=== PATIENT | male | born 1985 | race Caucasian/White ===

== ENCOUNTER 2023-10-26 22:20 | Observation (INO) ==
[2023-10-26] MEDS ORDERED: SODIUM CHLORIDE 0.9% 1,000 ML IV ONE ×2 (23:13→23:20)
[2023-10-26] MEDS ORDERED: ONDANSETRON INJ 2 MG/ML 2 ML VIAL IV STA (23:14)
[2023-10-26] MEDS ORDERED: LORazepam 1 MG/1 ML SYR ED Inj Use IV STA (23:14)
[2023-10-26] MEDS ORDERED: GLUCAGON FOR INJ 1 MG VIAL SQ STA (23:15)
--- NOTE | 2023-10-26 23:20 | Emergency Department Note ---
History of Present Illness General Chief complaint: Food Bolus Stated complaint: FOOD BOLUS Time Seen by Provider: 10/26/23 23:07 Source: patient, family ( was at the bedside), RN notes reviewed and old records reviewed (Old records were attempted to be reviewed but there were no old records in the system) Mode of arrival: ambulatory Limitations: no limitations History of Present Illness Maximum Pain Intensity: 5 This patient is 38-year-old male who comes in after having difficulty swallowing. He feels like something stuck in his epigastric area. He has had this before but never been scoped he was eating some deer tenderloin's as well as other food today around 5:00 felt to get stuck since then he has had trouble drinking water all the saliva he is thrown up a couple times. No fever. No trauma or injury. His father did of esophageal cancer. Denies any allergies. His is at the bedside and driving. Allergies Allergy/AdvReac Type Severity Reaction Status Date / Time No Known Drug Allergies Allergy Verified 10/27/23 01:01 Past Med/Surg History Medical History Encounter for pre-operative examination Food impaction of esophagus Social History Smoking Status: Current every day smoker Tobacco Type: E-cigarettes / Vaping Feels Safe at Home: Yes Immunizations: Past medical historyhe has had ongoing issues with swallowing but never been evaluated Family history esophageal cancer Review of Systems A total of 10 systems reviewed and were otherwise negative Physical Exam Vital Signs Vital Signs - 24 hr 10/26/23 22:26 Temperature 36.5 C Temperature Source Temporal Artery Scan Pulse Rate 95 H Respiratory Rate 16 Respiratory Effort / Characteristics Non-Labored Spontaneous Respiratory Depth Normal Blood Pressure 139/89 Blood Pressure Mean 105 Blood Pressure Position Sitting Pulse Oximetry 94 Oxygen Delivery Method Room Air Sepsis Recent Fever Within 48 Hours No Sepsis New/Unexplained Change in Mental Status N/A Sepsis Action Taken by Nursing No Action Required General: Well developed well nourished young male who is spitting frequently his saliva but in no acute distress, breathing comfortably on room air. Normal speech HEENT: Normal cephalic atraumatic. Pupils are equal round and reactive to light. Extraocular movements are intact. Oropharynx is pink with moist mucous membranes. No swelling of the mouth lips or tongue. Neck: Supple with a midline trachea. No meningeal signs or stiffness, no JVD or bruits. No Stridor. Chest: Clear to auscultation bilaterally. No wheezes or rhonchi. No increased work of breathing. Heart: Regular rate and rhythm without murmurs or gallops. Abdomen: Soft nontender, nondistended without rebound guarding or rigidity. Extremities: No cyanosis clubbing or edema. No calf tenderness or assymetry Spine/Back. Non tender to palpation. No CVA tenderness Skin: Good turgor without rashes. Neurologic exam: Cranial nerves two through 12 are intact. Motor and sensation are intact and symmetrical throughout. Course Administered Medications Discontinued Medications Glucagon (Glucagon For Inj 1 Mg Vial) 1 mg SQ NOW STA Stop: 10/26/23 23:16 Last Admin: 10/26/23 23:26 Dose: 1 mg Documented By: MAIDA Sodium Chloride (Nss) 1,000 mls @ 999 mls/hr IV .Q1H1M ONE Stop: 10/27/23 00:13 Last Admin: 10/26/23 23:25 Dose: 999 mls/hr Documented By: MAIDA Sodium Chloride (Nss) 1,000 mls @ 999 mls/hr IV .Q1H1M ONE Stop: 10/27/23 00:20 Last Admin: 10/26/23 23:26 Dose: Not Given Documented By: MAIDA Lorazepam (Lorazepam 1 Mg/1 Ml Syr Ed Inj Use) 1 mg IV ONE STA Stop: 10/26/23 23:15 Last Admin: 10/26/23 23:25 Dose: 1 mg Documented By: MAIDA Ondansetron HCl (Ondansetron Inj 2 Mg/Ml 2 Ml Vial) 4 mg IV NOW STA Stop: 10/26/23 23:15 Last Admin: 10/26/23 23:25 Dose: 4 mg Documented By: MAIDA Medical Decision Making Differential Diagnosis Fluid bolus, dehydration, vomiting, infection, GERD Medical Records Attestation: I reviewed the patient's medical records. Home Medications Current Medication List: was personally reviewed by me Laboratory Data Attestation: I reviewed the patient's lab results. 10/26/23 23:32 10/26/23 23:32 Lab Results 10/26/23 Range/Units 23:32 WBC 8.27 (4.8-10.8) K/ul RBC 4.95 (4.70-6.10) M/uL Hgb 15.6 (14.0-18.0) g/dl Hct 44.2 (42.0-52.0) % MCV 89.3 (80.0-100.0) fL MCH 31.5 (25.0-34.0) pg MCHC 35.3 (32.0-36.0) g/dL RDW Std Deviation 39.7 (36.4-46.3) fL RDW Coeff of Demetris 12.2 (11.5-14.5) % Plt Count 328 (130-400) K/uL MPV 9.3 L (9.4-12.4) fL Immature Gran % (Auto) 0.4 % Neut % (Auto) 60.4 % Lymph % (Auto) 30.0 % [place] % (Auto) 6.8 % Eos % (Auto) 1.7 % Baso % (Auto) 0.7 % Neut # (Auto) 5.00 (1.40-6.50) K/uL Lymph # (Auto) 2.48 (1.20-3.40) K/uL [place] # (Auto) 0.56 (0.11-0.59) K/uL Eos # (Auto) 0.14 (0.00-0.50) K/uL Baso # (Auto) 0.06 (0.00-0.20) K/uL Immature Gran # (Auto) 0.03 (0.01-0.20) K/uL Sodium 142 (136-145) mmol/L Potassium 4.3 (3.5-5.1) mmol/L Chloride 105 (98-107) mmol/L Carbon Dioxide 32 (21-32) mmol/L Anion Gap 5 (3-11) BUN 12 (6-23) mg/dl Creatinine 0.90 (0.6-1.4) mg/dl Est Cr Clr Drug Dosing 140.4 ml/min Est GFR ( Amer) 125.1 ml/min Est GFR (Non-Af Amer) 108.0 ml/min BUN/Creatinine Ratio 13.3 (10-20) Glucose 98 (70-99(Fasting)) mg/dl Calcium 9.8 (8.6-10.3) mg/dl Total Bilirubin 0.3 (0.2-1.0) mg/dl AST 19 (13-39) U/L ALT 25 (7-52) U/L Alkaline Phosphatase 46 (34-104) U/L Total Protein 7.6 (6.0-8.3) gm/dl Albumin 4.9 (3.4-5.0) gm/dl Globulin 2.7 (2.5-4.0) gm/dl Albumin/Globulin Ratio 1.8 (0.9-2) Lipase 9 L (11-82) U/L Imaging Data Attestation: I personally reviewed and interpreted this imaging study as follows: My Impression: Chest x-rayno acute infiltrate, failure, pneumothorax seen. No free air. MDM Narrative This patient comes in as described above. He was seen in room C1. He is here for treatment and evaluation of difficulty swallowing clinically he appears to have a food bolus he is unable to swallow saliva I had him try drink water and he said he could not keep it down and started spitting back up. IV X established I did order blood work and an x-ray 1 L normal saline bolus I gave him Ativan 1 mg IV and Zofran 4 mg IV as well as glucagon 1 mg subcutaneous to attempt to treat the food bolus. Despite these efforts the patient did not receive any relief and when I went back and checked on him he was holding emesis bag that had a lot of clear liquid in it that he had thrown back up. He is spitting his saliva out. He will need to be scoped by GI. I did call and discussed the case in consultation with Dr. Simpson who is on-call for GI. He will call the team and they will plan on scoping the patient for his food bolus. Impression & Plan Food impaction of esophagus, Difficulty in swallowing, Epigastric abdominal pain, Vomiting Discharge Plan Visit Data Chief Complaint: Food Bolus Stated Complaint: FOOD BOLUS ED Provider: Oj Camp Discharge Problem: Food impaction of esophagus, Difficulty in swallowing, Epigastric abdominal pain, Vomiting Patient Disposition: Admitted As Inpatient Discharge Instructions Interventions: ED Discharge Assessment Last Done: 10/27/23 00:46 Discharge Problem: Difficulty in swallowing Qualifiers: Dysphagia type: unspecified Qualified Code(s): R13.10 - Dysphagia, unspecified Vomiting Qualifiers: Vomiting type: unspecified Nausea presence: with nausea Qualified Code(s): R 11.2 - Nausea with vomiting, unspecified
[2023-10-27 00:06] LABS: Albumin Globulin Ratio 1.8 (0.9-2); Albumin Level 4.9 gm/dl (3.4-5.0); BUN Creatinine Ratio 13.3 (10-20); Bilirubin,Total 0.3 mg/dl (0.2-1.0); Calcium 9.8 mg/dl (8.6-10.3); Creatinine Clr Calc Pharmacy 140.4 ml/min; Est GFR (African American) 125.1 ml/min; Globulin 2.7 gm/dl (2.5-4.0); Potassium 4.3 mmol/L (3.5-5.1); Total Protein 7.6 gm/dl (6.0-8.3)
[2023-10-27 00:11] LABS: Basophils # (auto) 0.06 K/uL (0.00-0.20); Basophils % (auto) 0.7 %; Eosinophils # (auto) 0.14 K/uL (0.00-0.50); Eosinophils % (auto) 1.7 %; Hematocrit (blood only) 44.2 % (42.0-52.0); Hemoglobin 15.6 g/dl (14.0-18.0); Immature Granulocytes # (auto) 0.03 K/uL (0.01-0.20); Immature Granulocytes % (auto) 0.4 %; Lymphocytes # (auto) 2.48 K/uL (1.20-3.40); Mean Corpuscular Hemoglobin 31.5 pg (25.0-34.0); Mean Corpuscular Hgb Conc 35.3 g/dL (32.0-36.0); Mean Corpuscular Volume 89.3 fL (80.0-100.0); Mean Platelet Volume 9.3 fL (9.4-12.4); Monocytes # (auto) 0.56 K/uL (0.11-0.59); Monocytes % (auto) 6.8 %; Neutrophils % (auto) 60.4 %; Platelet Count 328 K/uL (130-400); RDW Coefficient of Variation 12.2 % (11.5-14.5); RDW Standard Deviation 39.7 fL (36.4-46.3); Red Blood Count 4.95 M/uL (4.70-6.10); White Blood Count 8.27 K/ul (4.8-10.8)
[2023-10-27] MEDS ORDERED: fentaNYL citrate PF 100 MCG/2 ML VIAL ONE (00:35)
[2023-10-27] MEDS ORDERED: LIDOCAINE 2% 2 ML VIAL/AMP(20MG/ML) INFIL ONE (00:35)
[2023-10-27] MEDS ORDERED: ONDANSETRON INJ 2 MG/ML 2 ML VIAL ONE (00:35)
[2023-10-27] MEDS ORDERED: MIDAZOLAM HCL 1 MG/ML 2ML VIAL ONE (00:35)
[2023-10-27] MEDS ORDERED: PROPOFOL IV EMULSION 10 MG/ML 20 ML VIAL IV ONE (00:35)
--- NOTE | 2023-10-27 00:43 | Anesthesiology Consultation ---
Date of Service October 27, 2023 Assessment & Plan (1) Encounter for pre-operative examination: Chart Review Chart Review: Acceptable Risk for Surgery and Patient NOT seen in Pre Admission Testing Consults Requested none History Surgery Operation Date: 10/27/23 00:15 Proposed Procedures p EGD Foreign Body Removal - Lv Simpson Jr, MD Height/Weight Height: 6 ft 2 in Weight: 99.7 kg Past Medical History Medical History (Updated 10/27/23 @ 00:43 by Rolando Sloan MD) Encounter for pre-operative examination Food impaction of esophagus Social History Smoking Status: Current every day smoker Physical Exam Vital Signs Last Vital Signs Temp 36.5 C 10/26/23 22:26 Pulse 95 H 10/26/23 22:26 Resp 16 10/26/23 22:26 BP 139/89 10/26/23 22:26 Pulse Ox 94 10/26/23 22:26 O2 Del Method Room Air 10/26/23 22:26 Testing Laboratory Results 10/26/23 23:32 10/26/23 23:32
[2023-10-27] MEDS ORDERED: ATROPINE SULFATE 0.1 MG/ML 10ML SYR IV PRN (01:02)
[2023-10-27] MEDS ORDERED: ePHEDrine sulfate 50 MG/ML AMP IV PRN (01:02)
[2023-10-27] MEDS ORDERED: ONDANSETRON INJ 2 MG/ML 2 ML VIAL IV PRN (01:02)
[2023-10-27] MEDS ORDERED: fentaNYL citrate PF 100 MCG/2 ML VIAL IV PRN (01:02)
[2023-10-27] MEDS ORDERED: PROMETHAZINE HCL 6.25 MG in SODIUM CHLORIDE 0.9% 50 ML IV PRN (01:02)
--- NOTE | 2023-10-27 01:02 | History & Physical Report ---
Date of Service October 27, 2023 Assessment & Plan (1) Encounter for pre-operative examination: Plan: Gentleman with food impaction needs EGD for relief of it. Procedure and risks discussed. He agrees. History of Present Illness Chief Complaint: Food impaction Primary Care Provider: NO PCP 38 year old man with food impaction began about 5 pm. He has had this happen before but it usually resolves. Does have a history of heartburn Allergies Allergy/AdvReac Type Severity Reaction Status Date / Time No Known Drug Allergies Allergy Verified 10/27/23 01:01 Past Med/Surg History Medical History Encounter for pre-operative examination Food impaction of esophagus Social History Smoking Status: Current every day smoker Tobacco Type: E-cigarettes / Vaping Feels Safe at Home: Yes Review of Systems All systems reviewed & are unremarkable except as noted in HPI & below Physical Exam Constitutional: WD/WN, vitals as above Neck: trachea midline, no thyromegaly Respiratory: normal respiratory effort, lungs clear to auscultation Cardiovascular: RRR, no murmur, no edema Gastrointestinal (Abdomen): normal bowel sounds, soft, nontender, no hepatosplenomegaly ASA Classification ASA ASA2E Results & Data Vital Signs (Past 12 Hours) Vital Signs Temp Pulse Resp BP Pulse Ox O2 Del Method 10/26/23 22:26 36.5 C 95 H 16 139/89 94 Room Air
--- NOTE | 2023-10-27 01:30 | GI REPORT ---
Patient Name: Rolando Bennett Procedure Date: 10/27/2023 12:55 AM Date of : 1985 Admit Type: Emergency Department Age: 38 Gender: Male Attending MD: Lv Simpson MD, Procedure: Upper GI endoscopy Providers: Lv Simpson MD Referring MD: Oj Camp Indications: Foreign body in the esophagus Medicines: General Anesthesia Complications: No immediate complications. Estimated Blood Loss: Estimated blood loss: none. Procedure: Pre-Anesthesia Assessment: - Prior to the procedure, a History and Physical was performed, and patient medications and allergies were reviewed. The patient's tolerance of previous anesthesia was also reviewed. The risks and benefits of the procedure and the sedation options and risks were discussed with the patient. All questions were answered, and informed consent was obtained. Prior Anticoagulants: The patient has taken no anticoagulant or antiplatelet agents. ASA Grade Assessment: II - A patient with mild systemic disease. After reviewing the risks and benefits, the patient was deemed in satisfactory condition to undergo the procedure. After obtaining informed consent, the endoscope was passed under direct vision. Throughout the procedure, the patient's blood pressure, pulse, and oxygen saturations were monitored continuously. The Endoscope was introduced through the mouth, and advanced to the second part of duodenum. The upper GI endoscopy was accomplished without difficulty. The patient tolerated the procedure well. Findings: Food was found in the middle third of the esophagus and in the lower third of the esophagus. With gentle pressure the food bolus was advanced into the stomach. With several passes the esophagus was cleared. The distal esophagus had changes consistent with EoE but there was some mucosal tearing and blood stained fluid obscuring the view The stomach was normal. The examined duodenum had a whitish appearance. This is likely coating from mucus/other substance but will need to be reevaluated when no food present in UGI tract.. Impression: - Food in the middle third of the esophagus and in the lower third of the esophagus. - Normal stomach. - Normal examined duodenum. - No specimens collected. Recommendation: - Patient has a contact number available for emergencies. The signs and symptoms of potential delayed complications were discussed with the patient. Return to normal activities tomorrow. Written discharge instructions were provided to the patient. - Resume previous diet. - Continue present medications. - Return to GI clinic at appointment to be scheduled. Lv Simpson MD 10/27/2023 1:29:23 AM Note Initiated On: 10/27/2023 12:55 AM Number of Addenda: 0 I attest to the content of the Intraoperative Record and orders documented therein, exceptions below {[id number]}
--- NOTE | 2023-10-27 01:49 | Anesthesiology Progress Note ---
Date of Service October 27, 2023 Anesthesia Post Procedure Vital Signs Vital Signs: Temp Pulse Resp BP BP Pulse Ox O2 Del Method 10/27/23 01:40 15 120/52 L 95 Oxymask 10/27/23 01:31 36.8 C 22 143/84 H 95 Oxymask 10/26/23 22:26 36.5 C 95 H 16 139/89 94 Room Air O2 Flow Rate 10/27/23 01:40 4 10/27/23 01:31 4 10/26/23 22:26 Pain Intensity Throat: Pain Intensity: 3 Transfer of Care Handoff Completed per policy Notes Mental Status: alert / awake / arousable and participated in evaluation Patient Amnestic to Procedure: Yes Nausea / Vomiting: adequately controlled Pain: adequately controlled Airway Patency, RR, SpO2: stable & adequate BP & HR: stable & adequate Hydration State: stable & adequate Anesthetic Complications: no major complications apparent and Pt Satisfied with anesthetic care
--- NOTE | 2023-10-27 03:29 | Anesthesiology Progress Note ---
Date of Service October 27, 2023 Anesthesia Post Procedure Vital Signs Vital Signs: Temp Pulse Pulse Resp BP BP Pulse Ox 10/27/23 03:00 37.2 C 99 H 24 105/66 93 10/27/23 02:30 37.2 C 104 H 18 119/55 L 88 L 10/27/23 02:03 36.7 C 108 H 22 131/64 91 10/27/23 02:00 36.7 C 109 H 17 126/70 93 10/27/23 01:50 109 H 18 123/56 L 92 10/27/23 01:40 107 H 15 120/52 L 95 10/27/23 01:31 36.8 C 115 H 22 143/84 H 95 10/26/23 22:26 36.5 C 95 H 16 139/89 94 O2 Del Method O2 Flow Rate 10/27/23 03:00 Nasal Cannula 3 10/27/23 02:30 Room Air 10/27/23 02:03 Room Air 10/27/23 02:00 Room Air 10/27/23 01:50 Room Air 10/27/23 01:40 Oxymask 4 10/27/23 01:31 Oxymask 4 10/26/23 22:26 Room Air Pain Intensity Throat: Pain Intensity: 3 Transfer of Care Handoff Completed per policy Notes Mental Status: alert / awake / arousable and participated in evaluation Patient Amnestic to Procedure: Yes Nausea / Vomiting: adequately controlled Pain: adequately controlled Airway Patency, RR, SpO2: see Notes below BP & HR: stable & adequate Hydration State: stable & adequate Anesthetic Complications: see Notes below and Pt Satisfied with anesthetic care Notes: Patient was unable to be weaned from supplemental oxygen. He continues to be on NC oxygen with SpO2 in low 90's. When asked to take deep breaths his SpO2 responds to mid 90's. Repeat CXR ordered. Lungs do sound clear to auscultation b/l. Patient only complaint is sore throat. Again, no aspiration noted upon intubation. I did notice significant amount of clear secretions seen on glidescope but no particulate matter noted and no stomach contents able to be regurgitated given the food impaction in his esophagus. Patient was suctioned prior to extubation and he was extubated (and induced) in an upright position. Patient given incentive spirometer and will be admitted overnight for continued monitoring and supplemental oxygen. Patient and his in agreement. [facility].
[2023-10-27] MEDS ORDERED: ALBUT/IPRATROP 3MG/0.5MG NEB 3 ML VIAL NEB PRN (03:37)
--- NOTE | 2023-10-27 03:45 | History & Physical Report ---
Date of Service October 27, 2023 Assessment & Plan (1) Food impaction of esophagus: (2) Depression: (3) Acute respiratory failure with hypoxia: (4) Aspiration pneumonia: (5) Difficulty in swallowing: Plan Food impaction of esophagus/difficulty swallowing- Patient was taken to the OR for an EGD, and had impaction pushed through esophagus and the stomach. Place on pantoprazole 40 mg IV daily Patient does note the expected sore throat NSS + KCl 20 mill equivalents at 100 mL/h N.p.o. for now Acute respiratory failure with hypoxia/aspiration pneumonia- Chest x-ray shows infiltrate left lower lobe Placed on Unasyn 1.5 g IV every 6 hours DuoNebs every 2 hours as needed Nasal cannula oxygen, titrate to keep pulse ox around 94% Depression- Hold bupropion until able to swallow comfortably History of Present Illness Chief Complaint: The patient presented to the emergency department with difficulty swallowing, due to food bolus around 5 PM, for which she was taken to the OR by Dr. Simpson at 1:00 for EGD Primary Care Provider: NO PCP The patient is a 38-year-old male with a past medical history including depression, who presented to the emergency department with difficulty swallowing associated with food bolus around 5 PM. Around 1 PM he was taken to the OR by Dr. Simpson, and fluid bolus was reportedly pushed in through the esophagus to the stomach. Before the procedure, it was noted patient had significant number of secretions, and postprocedure patient is oxygenation. Requiring 2 to 3 L of nasal cannula oxygen to maintain pulse ox around 93%. Hospital medicine was then asked to admit patient for continued monitoring and treatment postprocedure due to inability to wean off of oxygen. Allergies Allergy/AdvReac Type Severity Reaction Status Date / Time No Known Drug Allergies Allergy Verified 10/27/23 01:01 Past Med/Surg History Medical History (Updated 10/27/23 @ 05:37 by John Hines MD) Depression Food impaction of esophagus Encounter for pre-operative examination Social History Smoking Status: Former smoker Tobacco Type: E-cigarettes / Vaping Do You Dip or Chew Tobacco: No; Hx Alcohol Use: Yes Alcohol type: beer Hx Substance Use: No Preferred Language: [place] Communication Ability: Effective [employer] Required: No Beliefs That Will Affect Care: None Current Living Situation: Spouse Feels Safe at Home: Yes Assistive Devices: None Review of Systems Review of Systems: The patient denies chest pain, palpitations, lower extremity swelling, fevers, chills, sweats, diarrhea , constipation, abdominal pain, pelvic pain, blood in urine or stool, dysuria, urinary frequency or urgency, lightheadedness, dizziness, headache, memory loss, loss of consciousness, rash, abnormal bruising or bleeding, imbalance, focal or generalized weakness, numbness or tingling in arms or legs, generalized arthralgias or myalgias, back or neck pain, or night sweats. The review of systems is otherwise negative other than for that already noted above, and at least 10 systems have been reviewed. Physical Exam Physical Exam: The patient is awake, alert and oriented 3, well developed and well nourished, normocephalic and atraumatic, lying in bed and in no acute distress. HEENT--PERRL, EOMI, mucous membranes and oropharynx dry. Neck--supple. No JVD. No bruits. Thyroid normal, trachea midline, no adenopathy. Heart--normal S1 and S2. No murmurs, rubs or gallops. Lungs--decreased breath sounds at the bases left greater than right. No respiratory distress, no accessory muscle use. Abdomen--normal bowel sounds and soft. Nontender. Nondistended, no hernias or masses, no organomegaly. Extremities--no cyanosis or clubbing. No edema. Dermatologic--normal skin turgor, normal color, no abnormal lymph nodes, no rash. Neurologic--cranial nerves II through XII grossly intact. Rheumatologic--normal range of motion. Psychiatric--normal affect. Results & Data Results & Data Vital Signs (Past 12 Hours) Vital Signs Temp Pulse Pulse Resp BP BP Pulse Ox 10/27/23 03:00 37.2 C 99 H 24 105/66 93 10/27/23 02:30 37.2 C 104 H 18 119/55 L 88 L 10/27/23 02:03 36.7 C 108 H 22 131/64 91 10/27/23 02:00 36.7 C 109 H 17 126/70 93 10/27/23 01:50 109 H 18 123/56 L 92 10/27/23 01:40 107 H 15 120/52 L 95 10/27/23 01:31 36.8 C 115 H 22 143/84 H 95 10/26/23 22:26 36.5 C 95 H 16 139/89 94 O2 Del Method O2 Flow Rate 10/27/23 03:00 Nasal Cannula 3 10/27/23 02:30 Room Air 10/27/23 02:03 Room Air 10/27/23 02:00 Room Air 10/27/23 01:50 Room Air 10/27/23 01:40 Oxymask 4 10/27/23 01:31 Oxymask 4 10/26/23 22:26 Room Air Laboratory Results Laboratory Results WBC 8.27 K/ul (4.8-10.8) 10/26/23 23:32 RBC 4.95 M/uL (4.70-6.10) 10/26/23 23:32 Hgb 15.6 g/dl (14.0-18.0) 10/26/23 23:32 Hct 44.2 % (42.0-52.0) 10/26/23 23:32 MCV 89.3 fL (80.0-100.0) 10/26/23 23:32 MCH 31.5 pg (25.0-34.0) 10/26/23 23:32 MCHC 35.3 g/dL (32.0-36.0) 10/26/23 23:32 RDW Std Deviation 39.7 fL (36.4-46.3) 10/26/23 23:32 RDW Coeff of Demetris 12.2 % (11.5-14.5) 10/26/23 23:32 Plt Count 328 K/uL (130-400) 10/26/23 23:32 MPV 9.3 fL (9.4-12.4) L 10/26/23 23:32 Immature Gran % (Auto) 0.4 % 10/26/23 23: Neut % (Auto) 60.4 % 10/26/23 23:32 Lymph % (Auto) 30.0 % 10/26/23 23:32 [place] % (Auto) 6.8 % 10/26/23 23: Eos % (Auto) 1.7 % 10/26/23 23: Baso % (Auto) 0.7 % 10/26/23 23:32 Neut # (Auto) 5.00 K/uL (1.40-6.50) 10/26/23 23:32 Lymph # (Auto) 2.48 K/uL (1.20-3.40) 10/26/23 23:32 [place] # (Auto) 0.56 K/uL (0.11-0.59) 10/26/23 23:32 Eos # (Auto) 0.14 K/uL (0.00-0.50) 10/26/23 23:32 Baso # (Auto) 0.06 K/uL (0.00-0.20) 10/26/23 23:32 Immature Gran # (Auto) 0.03 K/uL (0.01-0.20) 10/26/23 23:32 Sodium 142 mmol/L (136-145) 10/26/23 23:32 Potassium 4.3 mmol/L (3.5-5.1) 10/26/23 23:32 Chloride 105 mmol/L (98-107) 10/26/23 23:32 Carbon Dioxide 32 mmol/L (21-32) 10/26/23 23:32 Anion Gap 5 (3-11) 10/26/23 23:32 BUN 12 mg/dl (6-23) 10/26/23 23:32 Creatinine 0.90 mg/dl (0.6-1.4) 10/26/23 23:32 Est Cr Clr Drug Dosing 140.4 ml/min 10/26/23 23:32 Est GFR ( Amer) 125.1 ml/min 10/26/23 23:32 Est GFR (Non-Af Amer) 108.0 ml/min 10/26/23 23:32 BUN/Creatinine Ratio 13.3 (10-20) 10/26/23 23:32 Glucose 98 mg/dl (70-99(Fasting)) 10/26/23 23:32 Calcium 9.8 mg/dl (8.6-10.3) 10/26/23 23:32 Total Bilirubin 0.3 mg/dl (0.2-1.0) 10/26/23 23:32 AST 19 U/L (13-39) 10/26/23 23:32 ALT 25 U/L (7-52) 11/26/23 23:32 Alkaline Phosphatase 46 U/L (34-104) 10/26/23 23:32 Total Protein 7.6 gm/dl (6.0-8.3) 10/26/23 23:32 Albumin 4.9 gm/dl (3.4-5.0) 10/26/23 23:32 Globulin 2.7 gm/dl (2.5-4.0) 10/26/23 23:32 Albumin/Globulin Ratio 1.8 (0.9-2) 10/26/23 23:32 Lipase 9 U/L (11-82) L 10/26/23 23:32 Code Status & VTE Plan Code Status Full code VTE Prophylaxis Plan VTE Prophylaxis will be ordered: Yes PG Care Time/CCT Total # of Minutes Spent Total Time Spent with Patient: Total time spent is greater than 50% in coordination of care (as documented) at patient's floor/unit and/or counseling patient: Coding Level of Care Code 06137 INT INP/OBS CARE 75MIN Diagnoses Food impaction of esophagus T18.128A; W44.F3XA Encounter type: initial encounter Depression F32.A Acute respiratory failure with hypoxia J96.01 Aspiration pneumonia J69.0 Difficulty in swallowing R13.10 Dysphagia type: unspecified (1) Food impaction of esophagus Encounter type: initial encounter Qualified Code(s): T18.128A - Food in esophagus causing other injury, initial encounter; W44.F3XA - Food entering into or through a natural orifice, initial encounter (5) Difficulty in swallowing Dysphagia type: unspecified Qualified Code(s): R13.10 - Dysphagia, unspecified
[2023-10-27] MEDS ORDERED: ACETAMINOPHEN 1,000 MG/100 ML VIAL IV PRN (04:40)
[2023-10-27] MEDS ORDERED: AMPICILLIN SOD/SULBACTAM SOD 1,500 MG in SODIUM CHLOR 0.9% MINI-B 100 ML IV SCH (05:00)
[2023-10-27] MEDS ORDERED: NSS + 20MEQ KCL 20 MEQ/1,000 ML BAG IV SCH (05:00)
--- NOTE | 2023-10-27 07:26 | XRay Report ---
XR chest 1V portable HISTORY: 38 years-old Male food bolus acute chest pain COMPARISON: None TECHNIQUE: AP view of the chest FINDINGS: Cardiomediastinal and hilar silhouettes are within normal limits. No opaque foreign bodies. No pneumo thorax, pleural effusion or airspace consolidation. The bones appear grossly intact. IMPRESSION: No acute process. ACT 112: Negative or not required by law. The above report was generated using voice recognition software. It may contain grammatical, syntax o r spelling errors. Electronically signed by: Paul Patel M.D. 10/27/2023 7:24 AM
--- NOTE | 2023-10-27 07:26 | XRay Report ---
XR chest 1V portable HISTORY: 38 years-old Male decreased oxygen saturation acute hypoxia COMPARISON: 10/26/2023 TECHNIQUE: AP view of the chest FINDINGS: Cardiac silhouette is normal. Interval development of patchy left basilar and left midlung airspace o pacities. No pneumothorax, pleural effusion or pulmonary edema. Bones appear grossly intact. IMPRESSION: Interval development of patchy left midlung and left basilar airspace opacities. This may represent atelectasis however should be correlated clinically to exclude pneumonitis. ACT 112: Negative or not required by law. The above report was generated using voice recognition software. It may contain grammatical, syntax o r spelling errors. Electronically signed by: Paul Patel M.D. 10/27/2023 7:24 AM
[2023-10-27] MEDS ORDERED: AMPICILLIN SOD/SULBACTAM SOD 3 GM VIAL IV SCH (07:45)
[2023-10-27] MEDS ORDERED: methylPREDNISolone 40 MG in SYRINGE 0 ML IV SCH (07:45)
[2023-10-27] MEDS ORDERED: PANTOprazole 40 MG TAB PO SCH (09:00)
[2023-10-27] MEDS ORDERED: UNASYN 3000MG / NS q6h IV SCH (10:00)
[2023-10-27] MEDS ORDERED: PANTOprazole 40 MG in SYRINGE 0 ML IV SCH (11:00)
--- NOTE | 2023-10-27 14:36 | Discharge Summary ---
Date of Service October 27, 2023 Admission HPI Per Admitting Provider The patient is a 38-year-old male with a past medical history including depression, who presented to the emergency department with difficulty swallowing associated with food bolus around 5 PM. Around 1 PM he was taken to the OR by Dr. Simpson, and fluid bolus was reportedly pushed in through the esophagus to the stomach. Before the procedure, it was noted patient had significant number of secretions, and postprocedure patient is oxygenation. Requiring 2 to 3 L of nasal cannula oxygen to maintain pulse ox around 93%. Hospital medicine was then asked to admit patient for continued monitoring and treatment postprocedure due to inability to wean off of oxygen. Principal Diagnosis Esophageal obstruction due to food bolus, suspected aspiration pneumonitis, acu te hypoxic respiratory failure Discharge Exam General-alert and oriented x3, no fevers, no chills HEENT-head atraumatic and normocephalic, pupils equal and reactive to light, extraocular muscles intact Neck-no lymphadenopathy or thyromegaly, trachea midline Chest-scattered rhonchi. No dullness to percussion. No wheezing Cardiac-regular rate and rhythm, normal S1 and S2 Abdomen-normal bowel sounds, nontender, no hepatosplenomegaly Extremities-no cyanosis, clubbing, or edema Neuro-cranial nerves II through XII intact, motor and sensory function within normal limits, strength symmetrical , no focal deficits Psych-normal affect, normal mood Discharge Data Allergies Allergy/AdvReac Type Severity Reaction Status Date / Time No Known Drug Allergies Allergy Verified 10/27/23 01:01 Procedures Performed Operation Date: 10/27/23 00:15 Actual Procedures p Upper Gastrointestinal Endoscopy(Not Applicable) - Lv Simpson Jr, MD Hospital Course (1) Food impaction of esophagus: Dislodged by EGD. Appreciate gastroenterology consultation and recommendations. (2) Depression: Stable. Continue current medical management (3) Acute respiratory failure with hypoxia: He was transiently on oxygen. Now on room air (4) Aspiration pneumonia: Actually this was probably aspiration pneumonitis. He will continue with a short course of prednisone tapering dose along with a short course of oral antibiotics at discharge Plan Home today, October 27. He will continue with a short course of prednisone in a tapering dose fashion along with Augmentin. He will remain on Protonix 40 mg once daily until seen by his PCP for further care. Total Time Total Time Spent Total Time Spent (In Minutes): 45 minutes Discharge Plan Discharge Items Patient Disposition: Home - Self-Care Reason For Visit: ASPIRATION PNEUMONITIS W/ HYPOXIA Discharge Diagnosis: Esophageal obstruction due to food bolus, suspected aspiration pneumonitis, transient acute hypoxic respiratory failure Condition on Discharge: Good Activity: Resume your previous activity Non-emergency contact: Primary Care Provider Call non-emergency contact if: you have any medication questions and your symptoms worsen Follow-up/Referrals: PCP,NO [Primary Care Provider] - Diet: Regular Addtl Attending Provider Instructions: Be sure to follow up with undergraduate internship to have elective EGD to assess why this is happening Pending Studies at Discharge: No Stand-Alone Forms: Anesthesia/Sedation, Adult, [facility], Work/School Release, Smoking Cessation Medications and DC Order Prescriptions: New pantoprazole 40 mg Tablet,Delayed Release (Dr/Ec) 40 mg PO QAM Qty: 30 0RF prednisone 10 mg tablet See Rx Instructions .ROUTE .COMPLEX Qty: 12 0RF Rx Instructions: 10 mg orally 3 times a day for 2 days, then 10 mg twice a day for 2 days, then 10 mg daily for 2 days, then stop amoxicillin-pot clavulanate 875-125 mg tablet 1 tab PO BID Qty: 10 0RF Discharge Orders: Discharge Order (Routine); Ordered 10/27/23 Ordered By: Victoriano Basilio/Other Patient Handouts: DVT Post Op Prevention Admission Data Admit Date/Time: 10/27/23 03:38 Attending Provider: Victoriano Crespo Admit Provider: John Hines Primary Care Provider: PCP,SUMMER Coding Level of Care Code 84373 INP/OBS DISCH >30 MIN Diagnoses Food impaction of esophagus T18.128A; [id number].F3XA Encounter type: initial encounter Depression F32.A Acute respiratory failure with hypoxia J96.01 Aspiration pneumonia J69.0
== END 2023-10-27 16:26 | disposition home or self-care (01) ==
LOC: ED 22:20 → OP 10-27 00:46 → 2S 10-27 00:46 → SUATTDRO 10-27 03:38

== ENCOUNTER 2025-10-15 04:52 | Inpatient (IN) ==
[2025-10-15 05:45] LABS: Hematocrit (blood only) 47.3 % (42.0-52.0); Hemoglobin 16.4 g/dL (14.0-18.0); Immature Granulocytes # (auto) 0.03 K/uL (0.01-0.20); Immature Granulocytes % (auto) 0.3 %; Mean Corpuscular Hemoglobin 31.1 pg (25.0-34.0); Mean Corpuscular Volume 89.8 fL (80.0-100.0); Platelet Count 316 K/uL (130-400); RDW Standard Deviation 41.6 fL (36.4-46.3); Red Blood Count 5.27 M/uL (4.70-6.10); White Blood Count 11.68 K/ul (4.8-10.8)
[2025-10-15 06:04] LABS: Alanine Aminotransferase 13 U/L (7-52); Albumin Globulin Ratio 1.8 (0.9-2); Albumin Level 4.8 gm/dl (3.4-5.0); Alkaline Phosphatase 51 U/L (34-104); Anion Gap 10 (3-11); Bilirubin,Total 0.3 mg/dl (0.2-1.0); Blood Urea Nitrogen 9 mg/dl (6-23); Calcium 9.9 mg/dl (8.6-10.3); Carbon Dioxide 27 mmol/L (21-32); Chloride 104 mmol/L (98-107); Globulin 2.7 gm/dl (2.5-4.0); Glucose 86 mg/dl (70-99(Fasting)); Potassium 3.9 mmol/L (3.5-5.1); Sodium 141 mmol/L (136-145); Total Protein 7.5 gm/dl (6.0-8.3)
[2025-10-15 06:11] LABS: Appearance Urine Clear (Clear); Bacteria Urine Automated None Seen (None Seen); Epithelial Cell Urine Auto 0-2 /hpf (0-2); Glucose Urine UA Negative (Negative); WBC Urine Automated 0-5 /hpf (0-5)
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
[2025-10-15 06:20] LABS: Thyroid Stimulating Hormone 3.267 uIu/ml (0.300-4.500)
[2025-10-15 06:35] LABS: Amphetamines+Metham, Urine Neg (Neg); MDMA (Ecstacy), Urine Neg (Neg); Marijuana, Urine Neg (Neg)
[2025-10-15 06:35] LABS: Acetaminophen < 3 ug/ml (10-30); Salicylate < 3.0 mg/dl (3.0-30)
[2025-10-15] MEDS ORDERED: MAGNESIUM HYDROXIDE SUSP 30 ML UDC PO PRN (08:10)
[2025-10-15] MEDS ORDERED: ALUMINUM/MAGNESIUM SUSP 30 ML UDC PO PRN (08:10)
[2025-10-15] MEDS ORDERED: SODIUM CHLORIDE 0.65% NA SOLN 45 ML (OCEAN) PRN (08:10)
[2025-10-15] MEDS ORDERED: BISMUTH SUBSALICYLATE 262 MG CHEW PO PRN (08:10)
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
[2025-10-15 11:01] VITALS: O2SAT 98
[2025-10-16 06:23] VITALS: RESP 16
--- NOTE | 2025-10-16 09:10 | Psychiatric Progress Note ---
Date of Service October 16, 2025 Impression / Recommendations (1) Suicidal ideation: Continue suicide precautions. (2) Suicide gesture: Present on Admission?: Yes (3) Major depressive disorder, recurrent severe without psychotic features: Plan 10/15/25 -The patient was admitted to the [facility] ([facility] mental health unit) on q15 min checks (behavioral with suicide precautions) for safety. The patient will participate in group, recreational, and milieu therapies and will be offered additional individual and family sessions as clinically appropriate. -Continue Wellbutrin 150 mg p.o. every morning -Lab results reviewed and shared with patient. -Family meeting to be scheduled for tomorrow Suicide Risk Level Suicide Risk Level: Moderate (q15 min suicide checks) Protective Factors Assessment Responsible for Young Children: Yes Employed: Yes ([employer]) Supportive Family: Yes Good Rapport with Provider: Yes Interval History Chief Complaint "I feel clear headed. I guess I met my breaking point. It was not like me to act like that." Review of Systems Sleep Information Total Hours of Sleep: 5.5 Meal Information Percent Meal Consumed - Lunch: 0 Percent Meal Consumed - Dinner: 100 Subjective Subjective Patient was seen & assessed and interval progress reviewed with nursing and social work. According to staff Rolando attended all groups was made aware of the PFA which includes his daughters and an addictionologist. Slept 5 hours last night. This morning was up very early. Pleasant with staff and peers. Rolando send date for the follow-up encounter with a calm and friendly demeanor. He exhibited good grooming and hygiene. Stated he is feeling "clearheaded" and denied side effects from the medication. He is aware of the PFA and appears to have come to terms with the stipulations. He identified his mother as his main source of source of support. He spoke at length about plans to move in with his mother, had someone else go to the house to retrieve his belongings as he is not allowed to be close to his and children. He denied any recent men or interest in retaliation. He is aware of the legal implications the incident that occurred on Friday night. He reported improved mood. Energy level is "normal" and his appetite is improved. He stated that he has been able to rest and attend the groups. Physical Exam Mental Examination Appearance: Well Groomed Eye Contact: Maintains Eye Contact Motor Behavior: Unremarkable Speech: Normal Mood: Calm and Sad Affect: Calm and Sad Thought Process: Intact Hallucinations: None Insight: Good Judgement: Good Vital Signs (Past 24 Hours) Last Vital Signs Temp 36.2 C L 10/16/25 06:00 Pulse 66 10/16/25 06:23 Resp 16 10/16/25 06:00 BP 123/74 10/16/25 06:23 Pulse Ox 98 10/15/25 10:48 O2 Del Method Room Air 10/15/25 10:48 Results & Data ([facility]) Current Inpatient Medications Current Inpatient Medications: Current Inpatient Medications Acetaminophen (Acetaminophen 325 Mg Tab) 650 mg PO Q4H PRN PRN Reason: Headache or Minor Fever Stop: 11/14/25 08:09 Al Hydrox/Mg Hydrox/Simethicone (Aluminum/Magnesium Susp 30 Ml Udc) 30 ml PO Q4H PRN PRN Reason: GI Upset Stop: 11/14/25 08:09 Bismuth Subsalicylate (Bismuth Subsalicylate 262 Mg Chew) 2 tab PO Q30M PRN PRN Reason: Loose Stool/Diarrhea Stop: 11/14/25 08:09 Bupropion HCl (Bupropion Xl 150 Mg Tabcr) 150 mg PO QAM JESICA Stop: 11/15/25 08:59 Last Admin: 10/16/25 08:40 Dose: 150 mg Hydroxyzine HCl (Hydroxyzine Hcl 25 Mg Tab) 50 mg PO HSZ PRN PRN Reason: Insomnia Stop: 11/14/25 08:09 Hydroxyzine HCl (Hydroxyzine Hcl 25 Mg Tab) 25 mg PO Q4H PRN PRN Reason: Anxiety Stop: 11/14/25 08:09 Magnesium Hydroxide (Magnesium Hydroxide Susp 30 Ml Udc) 30 ml PO DAILY PRN PRN Reason: Constipation Stop: 11/14/25 08:09 Sodium Chloride (Sodium Chloride 0.65% Na Soln 45 Ml (Menard)) 1 - 2 sprays NA PRN PRN PRN Reason: Nasal Dryness/Congestion Stop: 11/14/25 08:09 Mental Health & Subst Abuse Tx Psychiatrist Name of Psychiatrist: None Date Of Appointment With Psychiatric Provider: ALL Therapist Name of Therapist: Guillermina worley [facility] Temperature Regulator Pyrometer Name of Temperature Regulator Pyrometer: NA (2) Suicide gesture Encounter type: initial encounter Qualified Code(s): X83.8XXA - Intentional self-harm by other specified means, initial encounter
[2025-10-17] MEDS: ACETAMINOPHEN 325 MG TAB PO PRN (05:37)
[2025-10-17 06:19] VITALS: BP 148/78; TEMP 97
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
[2025-10-17 12:44] VITALS: PULSE 76
== END 2025-10-17 14:54 | DRG 885 ==
LOC: ED 04:52 → 3S 08:10
DX: F17.290 Nicotine dependence, other tobacco product, uncomplicated; R45.851 Suicidal ideations; F41.1 Generalized anxiety disorder; Z63.0 Problems in relationship with spouse or partner; F33.2 Major depressive disorder, recurrent severe without psychotic features; Z63.4 Disappearance and death of family member